=== PATIENT | female | born 1950 | race Caucasian/White ===

== ENCOUNTER 2017-02-05 15:34 | Emergency (ER) | payer OTHER ==
[~2017-02-05] VITALS: Ht 167.6 cm; Wt 99.3 kg
--- NOTE | ~2017-02-05 | CT4 ---
[facility] A Service of [facility] RADIOLOGY TEXT RESULTS PATIENT: FOREST LOVING LOCATION: [facility] : 52 UNIT #: [id number] AGE: [address]: Wyatt Paz MD SEX: F ORDER DR: [id number] [facility]. [place], [place] [address] [id number] MR#: [id number] Acc #: [id number] NAME: FOREST LOVING. : 1950 SEX: F STUDY DATE/TIME: 02/05/2017 18:06 UNIT: [facility] ROOM: STUDY DESCRIPTION: CT Abd and Pelv Wo Cont Attending Physician: Wyatt Paz M.D. Ordering Physician: Wyatt Paz M.D. Primary Care Physician: Leonel Teague M.D. MEDICAL IMAGING REPORT This report is preliminary unless electronic signature is present EXAM CT abdomen and pelvis without contrast HISTORY Vomiting for several weeks. COMPARISON CT abdomen and pelvis 07/21/2015 FINDINGS Axial images performed through the abdomen and pelvis without contrast. Multiplanar reconstructed images reviewed at a workstation. This CT exam was performed with one or more of the following radiation dose reduction techniques: Automatic exposure control, adjustment of mA and/or kV according to patient size, and iterative reconstruction. ABDOMEN: Lung bases unremarkable. Patient has a large hiatal hernia with essentially an intrathoracic stomach. No findings to suggest a gastric outlet obstruction. Liver, spleen, gallbladder, pancreas are unremarkable except for fatty infiltration of the pancreas. Adrenal glands unremarkable. The right kidney appears normal. There is marked left renal cortical atrophy unchanged from prior CT scan. Small bowel and colon unremarkable. PELVIS: Bladder, uterus, adnexa appear normal. Osseous structures, soft tissues unremarkable. IMPRESSION 1. 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 This, however, is unchanged when compared to the patient's CT scan from June 2015. This could be a contributing factor to the patient's clinical symptoms, but no findings to suggest an acute gastric outlet obstruction. [facility] A Service of [facility] RADIOLOGY TEXT RESULTS PATIENT: FOREST LOVING LOCATION: [facility] : 52 UNIT #: [id number] AGE: [address]: Wyatt Paz MD SEX: F ORDER DR: 2. Marked left renal cortical atrophy unchanged from 2016 CT scan. Dictated by... Renata Cortez M.D. THIS IS AN ELECTRONICALLY VERIFIED REPORT Renata Cortez M.D. at 02/06/2017 7:37 PM TANYA/merle TD: 02/06/2017 16:13 JOB #: [id number] MEDICAL IMAGING REPORT Page 1 of 1 COPY
[~2017-02-05 15:34] MED LIST: ALDACTONE PO; ASPIRIN PO; CARBATROL300 MG PO; CRESTOR PO; DITROPAN PO; PREVACID PO; REGLAN PO
[2017-02-05 17:04] LABS: BASOPHIL# 0.1 X10e3 (0-0.3); BASOPHIL% 0.8 % (0-2.5); DIFF IND NO; EOSINOPHIL# 0.1 X10e3 (0-0.7); EOSINOPHIL% 1.6 % (0.0-7.0); HEMATOCRIT 30.7 % (35.0-45.0); HEMOGLOBIN 10.2 gm/dL (12.0-16.0); LYMPHOCYTE# 1.4 X10e3 (1.0-3.5); LYMPHOCYTE% 19.3 % (17.0-45.0); MEAN CORPUSCULAR HEMOGLOBIN 28.9 PG (28-34); MEAN CORPUSCULAR HGB CONC 33.2 g/dL (30-36); MEAN PLATELET VOLUME 6.8 FL (6.5-11.5); MONOCYTE# 0.5 X10e3 (0-1.0); MONOCYTE% 6.4 % (3.0-12.0); NEUTROPHIL# 5.1 X10e3 (1.5-7.1); NEUTROPHIL% 71.9 % (40-75); PLATELET COUNT 342 X10e3 (140-420); RED BLOOD COUNT 3.53 X10e (3.90-5.30); RED CELL DISTRIBUTION WIDTH 13.3 % (11.0-15.5)
[2017-02-05 17:22] LABS: ALBUMIN SERUM 4.3 g/dL (3.5-5.0); BILIRUBIN, DIRECT 0.1 mg/dL (0.0-0.2); BILIRUBIN,INDIRECT 0.4 mg/dL (0.0-0.9); BILIRUBIN,TOTAL 0.5 mg/dL (0.2-2.0); BUN/CREATININE RATIO 16.25; CALCIUM SERUM 9.3 mg/dL (8.4-10.2); CREATININE SERUM 1.6 mg/dL (0.6-1.4); GLOM FILT RATE Estimated 33.5 mL/min (>60); POTASSIUM 4.1 mmol/L (3.5-5.1); PROTEIN TOTAL SERUM 7.6 g/dL (6.0-8.3)
[2017-02-05 18:56] LABS: URINE SOURCE CLEAN CATCH
[2017-02-05 19:00] LABS: URINE APPEARANCE CLOUDY; URINE BILIRUBIN NEG (NEG); URINE BLOOD NEG (NEG); URINE COLOR YELLOW; URINE GLUCOSE NEG (NEG); URINE KETONE TRACE (NEG); URINE LEUKOCYTE ESTERASE 3+ (NEG); URINE NITRATE POS (NEG); URINE PROTEIN 1+ (NEG); URINE SPECIFIC GRAVITY 1.019 (1.003-1.035); URINE UROBILINOGEN 0.2 MG/DL (NEG)
[2017-02-05 19:03] LABS: CULTURE INDICATED? YES; URINE BACTERIA AUWI 4+ (NEGATIVE); URINE SQUAMOUS EPITHELIAL CELL OCC /[HPF]; UWBCS1 AUWI 50-100 (0-5)
[2017-02-15] MEDS ORDERED: METFORMIN PO (16:17)
[2017-02-15] MEDS ORDERED: KEPPRA PO (16:17)
== END 2017-02-05 20:19 | disposition home or self-care (01) ==
LOC: CED 15:34
PROVIDERS: Emergency Medicine
DX: N30.00 Acute cystitis without hematuria (principal); E86.0 Dehydration; K31.89 Other diseases of stomach and duodenum; Z88.8 Allergy status to other drugs, medicaments and biological substances
CPT/HCPCS: 74176; 80048; 80076; 81003; 83690; 85025; 87086; 87088; 87186; 96361; 96365; 96375; 99284; J0696; J2405